=== PATIENT | male | born 1990 | race Caucasian/White ===

== ENCOUNTER 2018-06-13 18:18 | Emergency (ER) | payer OTHER ==
[~2018-06-13] VITALS: Ht 177.8 cm; Wt 68.0 kg
[2018-06-13] MEDS ORDERED: FLOVENT HFA12 G1 INH (18:29)
[2018-06-13] MEDS ORDERED: VENTOLIN HFA18 GM INH (18:29)
[2018-06-13] MEDS ORDERED: OMEPRAZOLE20 MG PO (18:29)
[2018-06-13] MEDS ORDERED: SYMBICORT 16010.2 GM INH (18:30)
[2018-06-13] MEDS ORDERED: NORCO 5-325 TA1 EACH PO (19:58)
[2018-06-13] MEDS ORDERED: CRUTCH1 EACH (19:59)
== END 2018-06-13 20:29 | disposition home or self-care (01) ==
LOC: ED 18:18
DX: S82.831A Other fracture of upper and lower end of right fibula, initial encounter for closed fracture (principal); S93.421A Sprain of deltoid ligament of right ankle, initial encounter; J45.909 Unspecified asthma, uncomplicated; Z79.899 Other long term (current) drug therapy; X50.9XXA Other and unspecified overexertion or strenuous movements or postures, initial encounter
CPT/HCPCS: 73610; 99283